=== PATIENT | female | born 2000 | race Caucasian/White ===

== ENCOUNTER 2024-10-23 14:57 | Emergency (ER) | payer OTHER ==
[~2024-10-23] VITALS: Ht 167.6 cm; Wt 114.2 kg
[2024-10-23] MEDS ORDERED: ALBU2.5V10 INH (15:15)
[2024-10-23] MEDS: IBUPROFEN 600MG TAB PO ONE (15:27)
[2024-10-23] MEDS ORDERED: NS 1,000 ML IV ONE (16:45)
[2024-10-23 17:15] VITALS: BP 134/91; TEMP 97; O2SAT 99
== END 2024-10-23 17:24 | disposition home or self-care (01) ==
LOC: EDBD 14:57 → M ED 14:57
DX: S40.021A Contusion of right upper arm, initial encounter (principal); V47.6XXA Car passenger injured in collision with fixed or stationary object in traffic accident, initial encounter; Y92.9 Unspecified place or not applicable; Y93.9 Activity, unspecified; Y99.9 Unspecified external cause status

== ENCOUNTER 2025-02-01 20:26 | Emergency (ER) | payer OTHER ==
[~2025-02-01] VITALS: Ht 167.6 cm; Wt 113.6 kg
[~2025-02-01 20:26] MED LIST: ALBU2.5V10 INH
[2025-02-01 20:31] VITALS: TEMP 97.9
[2025-02-01] MEDS ORDERED: OMEP40CA5 (20:58)
[2025-02-01] MEDS ORDERED: PROP40TA62 (20:58)
[2025-02-01] MEDS ORDERED: VENTAER (20:58)
[2025-02-01] MEDS ORDERED: OLAN1TAB20 (20:58)
[2025-02-01] MEDS ORDERED: CETI-24 (20:58)
[2025-02-01] MEDS ORDERED: SUMA25TA3 (20:58)
[2025-02-02 00:12] LABS: IONIZED CALCIUM 4.6 MG/DL (4.5-5.3)
[2025-02-02] MEDS: LORazepam 2 MG/ML 1ML VIAL IV STA (00:14)
[2025-02-02 00:16] LABS: BASO # 0.1 10^3/uL (0.0-0.2); BASO % 0.5 % (0.0-1.0); EOS # 0.3 10^3/uL (0.0-0.5); EOS % 3.6 % (0.0-3.0); HEMOGLOBIN 12.5 g/dl (12.0-15.5); LYMPH # 4.2 10^3/uL (1.5-5.0); LYMPH % 45.5 % (24.0-44.0); MEAN CORPUSCULAR HEMOGLOBIN 30.5 pg (27.0-33.0); MEAN CORPUSCULAR HGB CONC 33.8 g/dl (32.0-36.5); MEAN CORPUSCULAR VOLUME 90.2 fl (80.0-96.0); MONO # 0.6 10^3/uL (0.0-0.8); MONO % 6.3 % (2.0-8.0); NEUTROPHILS # 4.1 10^3/uL (1.5-8.5); NEUTROPHILS % 43.7 % (36.0-66.0); PLATELET COUNT, AUTOMATED 306 10^3/uL (150-450); WHITE BLOOD COUNT 9.3 10^3/uL (4.0-10.0)
[2025-02-02 00:39] LABS: ETHYL ALCOHOL (ETHANOL) 0.004 % (0.000-0.010); HCG, SERUM QUALITATIVE NEGATIVE (NEGATIVE)
[2025-02-02 00:40] LABS: ALBUMIN 3.4 G/DL (3.2-5.2); ALKALINE PHOSPHATASE 52 U/L (35-104); ALT/SGPT 57 U/L (7.0-40); AST/SGOT 39 U/L (<34); BILIRUBIN,DIRECT < 0.1 MG/DL (<0.4); BILIRUBIN,TOTAL 0.3 MG/DL (0.3-1.2); BLOOD UREA NITROGEN 10 MG/DL (9-23); CALCIUM LEVEL 9.2 MG/DL (8.5-10.1); CARBON DIOXIDE LEVEL 24 MMOL/L (20-31); CHLORIDE LEVEL 107 MMOL/L (98-107); CREATININE FOR GFR 0.57 MG/DL (0.55-1.30); GLOMERULAR FILTRATION RATE > 60.0 (>60); GLUCOSE, FASTING 178 MG/DL (60-100); MAGNESIUM LEVEL 1.7 MG/DL (1.8-2.4); PHOSPHORUS LEVEL 4.1 MG/DL (2.5-4.9); POTASSIUM SERUM 3.7 MMOL/L (3.5-5.1); SODIUM LEVEL 142 MMOL/L (136-145); TOTAL PROTEIN 6.7 G/DL (5.7-8.2)
[2025-02-02 01:09] LABS: AMPHETAMINES LEVEL URINE NEGATIVE (NEGATIVE); BARBITURATES URINE NEGATIVE (NEGATIVE); BENZODIAZEPINES URINE NEGATIVE (NEGATIVE); COCAINE METABOLITE URINE NEGATIVE (NEGATIVE); METHADONE URINE NEGATIVE (NEGATIVE)
[2025-02-02 01:10] LABS: CANNABINOIDS URINE NEGATIVE (NEGATIVE); OPIATES URINE NEGATIVE (NEGATIVE); PHENCYCLIDINE URINE NEGATIVE (NEGATIVE)
[2025-02-02 02:15] VITALS: BP 117/67; O2SAT 97
== END 2025-02-02 02:42 | disposition home or self-care (01) ==
LOC: M ED 20:26
DX: G25.9 Extrapyramidal and movement disorder, unspecified (principal); J45.909 Unspecified asthma, uncomplicated; G43.909 Migraine, unspecified, not intractable, without status migrainosus; K21.9 Gastro-esophageal reflux disease without esophagitis; F95.2 Tourette's disorder
CPT/HCPCS: 70450; 80048; 80076; 80307; 82077; 82140; 82330; 83605; 83735; 84100; 84703; 85025; 93041; 94760; 96374; 99284; J2060

== ENCOUNTER 2025-07-04 19:19 | Emergency (ER) | payer OTHER ==
[~2025-07-04] VITALS: Ht 165.1 cm; Wt 107.9 kg
[~2025-07-04 19:19] MED LIST changes: +CETI-24; +OLAN1TAB20; +OMEP40CA5; +PROP40TA62; +SUMA25TA3; +VENTAER
[2025-07-04 21:24] VITALS: TEMP 97.7
[2025-07-04 22:32] LABS: BASO # 0.0 10^3/uL (0.0-0.2); BASO % 0.4 % (0.0-1.0); EOS # 0.3 10^3/uL (0.0-0.5); EOS % 2.6 % (0.0-3.0); LYMPH # 3.3 10^3/uL (1.5-5.0); LYMPH % 31.1 % (24.0-44.0); MONO # 0.5 10^3/uL (0.0-0.8); MONO % 4.5 % (2.0-8.0); NEUTROPHILS # 6.5 10^3/uL (1.5-8.5); NEUTROPHILS % 61.0 % (36.0-66.0); PLATELET COUNT, AUTOMATED 338 10^3/uL (150-450)
[2025-07-04 22:56] LABS: ALT/SGPT 46 U/L (7.0-40); AST/SGOT 42 U/L (<34); CALCIUM LEVEL 10.2 MG/DL (8.5-10.1); CARBON DIOXIDE LEVEL 28 MMOL/L (20-31); CHLORIDE LEVEL 102 MMOL/L (98-107); CREATININE FOR GFR 0.74 MG/DL (0.55-1.30); GLOMERULAR FILTRATION RATE > 90.0 (>60); HCG, SERUM QUALITATIVE NEGATIVE (NEGATIVE); POTASSIUM SERUM 4.5 MMOL/L (3.5-5.1); SODIUM LEVEL 141 MMOL/L (136-145)
[2025-07-05 02:33] LABS: INR 1.02
[2025-07-05] MEDS ORDERED: SPRI28TA PO (05:25)
[2025-07-05 06:07] LABS: BILIRUBIN, URINE MANUAL 1+ (NEGATIVE); GLUCOSE, URINE (UA) MANUAL NEGATIVE (NEGATIVE); KETONE, URINE MANUAL 1+ mg/dL (NEGATIVE); PROTEIN, URINE MANUAL 3+ mg/dL (NEGATIVE); SPECIFIC GRAVITY,URINE MANUAL 1.030 (1.002-1.035); UROBILINOGEN, URINE MANUAL NORMAL (NORMAL)
[2025-07-05 06:08] LABS: BLOOD URINE MANUAL POSITIVE (NEGATIVE); LEUKOCYTE ESTERASE, URINE MAN POSITIVE (NEGATIVE); NITRITE, URINE MANUAL NEGATIVE (NEGATIVE); PH,URINE MAN 5.0 UNITS (5.0 - 7.0)
[2025-07-05 06:09] LABS: APPEARANCE, URINE MANUAL HAZY (CLEAR); COLOR, URINE MANUAL AMBER (YELLOW)
[2025-07-05 06:12] LABS: BACTERIA, URINE SMALL AMOUNT; HYALINE CAST, URINE NONE SEEN /lpf (0-1); RBC, URINE TNTC /hpf (0-3); SQUAMOUS EPITHELIAL CELL URINE MOD AMOUNT /hpf (SMALL AMT); WBC, URINE 15-20 /hpf (0-3)
[2025-07-05] MEDS ORDERED: CIPR500T39 PO (06:39)
[2025-07-05 07:15] VITALS: BP 114/81; O2SAT 96
[2025-07-05 07:19] LABS: Trichomonas vaginalis (AMP) NOT DETECTED (NEGATIVE)
== END 2025-07-05 07:21 | disposition home or self-care (01) ==
LOC: M ED 19:19
DX: N92.0 Excessive and frequent menstruation with regular cycle (principal); J45.909 Unspecified asthma, uncomplicated; K21.9 Gastro-esophageal reflux disease without esophagitis; G43.909 Migraine, unspecified, not intractable, without status migrainosus; Z79.899 Other long term (current) drug therapy

== ENCOUNTER 2025-08-23 03:59 | Emergency (ER) | payer OTHER ==
[~2025-08-23] VITALS: Ht 165.1 cm; Wt 113.6 kg
[~2025-08-23 03:59] MED LIST changes: +CIPR500T39 PO; +SPRI28TA PO
[2025-08-23 04:21] VITALS: TEMP 96.6
[2025-08-23] MEDS: NS (Normal Saline) 0.9% 1,000 ML IV ONE (04:40)
[2025-08-23] MEDS: FAMOTIDINE 20 MG/2 ML VIAL IVP ONE (04:41)
[2025-08-23] MEDS: diphenhydrAMINE 50 MG/ML VIAL IV STA (04:43)
[2025-08-23] MEDS: ALBUTEROL SULFATE 2.5 MG/0.5 ML INH CONCENTRATE NEB SOLN NEB ONE (04:46)
[2025-08-23 05:44] VITALS: BP 120/70; O2SAT 99
[2025-08-23] MEDS ORDERED: BENA25CA4 PO (05:53)
[2025-08-23] MEDS ORDERED: PEPC1TAB5 PO (05:53)
[2025-08-23] MEDS ORDERED: PRED20TA PO (05:53)
== END 2025-08-23 06:08 | disposition home or self-care (01) ==
LOC: M ED 03:59
DX: T78.40XA Allergy, unspecified, initial encounter (principal); J45.909 Unspecified asthma, uncomplicated; K21.9 Gastro-esophageal reflux disease without esophagitis; R51.9 Headache, unspecified; F17.200 Nicotine dependence, unspecified, uncomplicated; Z79.899 Other long term (current) drug therapy
CPT/HCPCS: 94640; 96361; 96374; 96375; 99284; J1100; J1200; J1308